=== PATIENT | male | born 2000 | race Two or more races ===

== ENCOUNTER 2019-09-06 13:28 | Emergency (ER) | payer OTHER ==
[~2019-09-06] VITALS: Ht 177.8 cm; Wt 99.8 kg
[2019-09-06] MEDS ORDERED: CLARITIN-D 241 EACH (14:10)
[2019-09-06] MEDS ORDERED: AMOX1TAB5 (14:11)
== END 2019-09-06 20:50 | disposition home or self-care (01) ==
LOC: ER 13:28
DX: E04.1 Nontoxic single thyroid nodule (principal); R59.0 Localized enlarged lymph nodes
CPT/HCPCS: 70490; Q9965

== ENCOUNTER 2025-03-27 14:25 | Emergency (ER) | payer OTHER ==
[~2025-03-27] VITALS: Ht 180.3 cm; Wt 87.5 kg
[~2025-03-27 14:25] MED LIST: AMOX1TAB5; CLARITIN-D 241 EACH
[2025-03-27 14:45] VITALS: BP 119/77; O2SAT 99
[2025-03-27] MEDS ORDERED: DEXAMETHASONE SODIUM PHOSPHATE 4 MG/ML VIAL IM STA (15:36)
[2025-03-27] MEDS ORDERED: LORATADINE 10 MG TABLET PO STA (15:36)
[2025-03-27] MEDS ORDERED: GUAIFENESIN 200 MG/10 ML BLIST.PACK PO STA (15:37)
[2025-03-27] MEDS ORDERED: DEXAMETHASONE SODIUM PHOSPHATE 4 MG/ML VIAL ONE (15:49)
[2025-03-27] MEDS ORDERED: GUAIFENESIN 200 MG/10 ML BLIST.PACK PO ONE (15:50)
[2025-03-27] MEDS ORDERED: CETIRIZINE HCL 5MG/5ML BLIST.PACK PO ONE (15:59)
[2025-03-27] MEDS ORDERED: CETIRIZINE HCL 5 MG/5 ML ML PO ONE (16:15)
[2025-03-27 16:18] LABS: BASO % 0.3 % (0.1-1.2); EOS # 0.22 (0.04-0.54); EOS % 3.0 % (0.7-7.0); LYMPH # 0.75 (1.18-3.74); LYMPH % 10.3 % (19.3-53.1); MEAN PLATELET VOLUME 10.40 fl (9.4-12.4); MONO # 0.49 (0.24-0.82); MONO % 6.7 % (4.7-12.5); NEUT # 5.81 (1.56-6.13); NEUT % 79.4 % (34.0-71.1); RED CELL DISTRIBUTION WIDTH 12.2 % (11.6-14.4)
[2025-03-27 16:40] LABS: COVID-19 AG NEGATIVE (NEGATIVE)
== END 2025-03-27 17:41 | disposition home or self-care (01) ==
LOC: ER 14:25
PROVIDERS: General Practice
DX: J06.9 Acute upper respiratory infection, unspecified (principal); Z20.822 Contact with and (suspected) exposure to COVID-19